=== PATIENT | male | born 1960 | race Caucasian/White ===

== ENCOUNTER → 2016-09-01 | Outpatient (CLI) | payer OTHER | END | disposition home or self-care (01) | LOC: RADMRIMAIN 21:03 | PROVIDERS: ATTEND Orthopaedic Surgery | DX: Z53.9 Procedure and treatment not carried out, unspecified reason (principal) ==

== ENCOUNTER 2023-01-22 13:35 | Inpatient (IN) | payer OTHER ==
[2023-01-22] MEDS ORDERED: IPRATROPIUM-ALBUTEROL 3 ML NEB INHALATION STA (14:11)
--- NOTE | 2023-01-22 14:12 | ED ---
SOB HPI - General Chief Complaint: Shortness of Breath Stated Complaint: Abn EKG, sent by pcp Time Seen by Provider: 01/22/23 13:35 Source: patient Mode of arrival: ambulatory Limitations: no limitations - History of Present Illness Initial Comments: 62-year-old male with no reported past medical history who presents to the emergency department from urgent care. He states he went in there on Wednesday complaining of a cough and shortness of breath. He was diagnosed with pneumonia and started on Augmentin, prednisone and an inhaler. Denies any fevers. No sick contacts with similar symptoms however has been traveling a lot. Admits to green sputum production and has had recurrent pneumonia in the past. He denies history of COPD or asthma. Patient has not felt any better on the medications and went back into the urgent care today. They did an EKG, saw a left bundle branch block. They told his he was having a heart attack and drive him immediately to the hospital. Patient denies any chest pain today. Reports that he did have a coughing fit yesterday with some chest pressure. He denies any history of cardiac disease. No history of DVT or PE. No other alleviating, precipitating or modifying factors - Related Data Home Medications Medication Instructions Recorded Confirmed Albuterol Sulfate [Albuterol 2 puff PO RT-Q4H PRN 01/22/23 01/22/23 Sulfate Hfa] Amoxic-Pot Clav 875-125Mg 1 tab PO Q12HR 01/22/23 01/22/23 [Augmentin 875-125] Magnesium Oxide [Magnesium] 500 mg PO DAILY 01/22/23 01/22/23 Phenylephrine/Dm/Acetaminop/GG 30 ml PO Q4H PRN 01/22/23 01/22/23 [Vicks Dayquil Severe Cold-Flu] clonazePAM 0.5 mg PO HS PRN 01/22/23 01/22/23 Allergies Allergy/AdvReac Type Severity Reaction Status Date / Time No Known Allergies Allergy Verified 01/22/23 15:27 Review of Systems ROS Statement: Those systems with pertinent positive or pertinent negative responses have been documented in the HPI. ROS Other: All systems not noted in ROS Statement are negative. Past Medical History Past Medical History: No Reported History History of Any Multi-Drug Resistant Organisms: None Reported Past Surgical History: No Surgical Hx Reported Past Psychological History: No Psychological Hx Reported Smoking Status: Never smoker Past Alcohol Use History: None Reported Past Drug Use History: None Reported General Exam Limitations: no limitations General appearance: alert, in no apparent distress Head exam: Present: atraumatic, normocephalic, normal inspection Eye exam: Present: normal appearance ENT exam: Present: normal exam, mucous membranes moist Respiratory exam: Present: wheezes. Absent: respiratory distress, accessory muscle use Cardiovascular Exam: Present: tachycardia, irregular rhythm GI/Abdominal exam: Present: soft, normal bowel sounds. Absent: distended, tenderness, guarding, rebound, rigid Extremities exam: Present: normal inspection, full ROM, normal capillary refill. Absent: tenderness, pedal edema, joint swelling, calf tenderness Neurological exam: Present: alert, oriented X3, CN II-XII intact Psychiatric exam: Present: normal affect, normal mood Skin exam: Present: warm, dry, intact, normal color. Absent: rash Course Vital Signs 01/22/23 01/22/23 01/22/23 13:37 13:44 14:39 Temperature 98.4 F Pulse Rate 106 H 101 H 92 Pulse Rate [ 105 H Vp Product ] Respiratory 22 18 18 Rate Blood Pressure 159/95 160/116 160/116 O2 Sat by Pulse 96 97 95 Oximetry 01/22/23 01/22/23 01/22/23 15:00 15:09 16:52 Temperature Pulse Rate 98 91 100 Pulse Rate [ Vp Product ] Respiratory 18 Rate Blood Pressure 148/119 O2 Sat by Pulse 95 Oximetry 01/22/23 17:13 Temperature Pulse Rate 106 H Pulse Rate [ Vp Product ] Respiratory 18 Rate Blood Pressure 171/106 O2 Sat by Pulse 95 Oximetry - Reevaluation(s) Reevaluation #1: Patient would like time to think about cath. Refusing lasix and heparin. Googling credentials for Dr. Lynch. Speaking with family over the phone 01/22/23 17:05 Reevaluation #2: 01/22/23 17:17 patient agreeable to cath at this time Medical Decision Making - Medical Decision Making Was pt. sent in by a medical professional or institution (, PA, LIGHTHOUSE KEEPER, urgent care, hospital, or shelter...) When possible be specific @ -Patient sent in from urgent care Did you speak to anyone other than the patient for history (EMS, parent, family, police, friend...)? What history was obtained from this source @ - provides most history Did you review nursing and triage notes (agree or disagree)? Why? @ -I reviewed and agree with nursing and triage notes Were old charts reviewed (outside hosp., previous admission, EMS record, old EKG, old radiological studies, urgent care reports/EKG's, shelter records)? Report findings @ -No old charts were reviewed Differential Diagnosis (chest pain, altered mental status, abdominal pain women, abdominal pain men, vaginal bleeding, weakness, fever, dyspnea, syncope, headache, dizziness, GI bleed, back pain, seizure, CVA, palpatations, mental health, musculoskeletal)? @ -Differential Dyspnea: Coronary syndrome, arrhythmia, tamponade, asthma, COPD, pulmonary embolism, pneumonia, pneumothorax, pulmonary effusion, anaphylaxis, diabetic ketoacidosis, flailed chest, pulmonary contusion, diaphragmatic rupture, anemia, neuromuscular, this is not meant to be an all-inclusive list. EKG interpreted by me (3pts min.). @ -Yes and demonstrates an irregular rhythm with a rate of 105. ME interval 199. QRS 165. QTC of 451. Left bundle-branch block. negative for sgarbossa criteria X-rays interpreted by me (1pt min.). @ -Yes and demonstrates primary vascular congestion with consolidation of the right upper lobe which may be pneumonia CT interpreted by me (1pt min.). @ -None done U/S interpreted by me (1pt. min.). @ -None done What testing was considered but not performed or refused? (CT, X-rays, U/S, labs)? Why? @ -CT was considered however the patient was taken to [facility] What meds were considered but not given or refused? Why? @ -None Did you discuss the management of the patient with other professionals (professionals i.e. Dr., PA, LIGHTHOUSE KEEPER, lab, RT, psych nurse, social group worker, gambling dealer, teacher, air control/anti air warfare officer, case packer and sealer)? Give summary @ -I spoke with Dr. Sparks, Dr. Dover and Dr. Lynch Was smoking cessation discussed for >3mins.? @ -No Was critical care preformed (if so, how long)? @ -yes, 40 minutes for coordination of care with hospitalist and c ardiologist's. [facility] activated Were there social determinants of health that impacted care today? How? (Homelessness, low income, unemployed, alcoholism, drug addiction, transpor tation, low edu. Level, literacy, decrease access to med. care, alf, rehab)? @ -No Was there de-escalation of care discussed even if they declined (Discuss DNR or withdrawal of care, Hospice)? DNR status @ -No What co-morbidities impacted this encounter? (DM, HTN, Smoking, COPD, CAD, Cancer, CVA, ARF, Chemo, Hep., AIDS, mental health diagnosis, sleep apnea, morbid obesity)? @ -None Was patient admitted / discharged? Hospital course, mention meds given and route, prescriptions, significant lab abnormalities, going to OR and other pertinent info. @ -Upon arrival patient was placed into trauma 2. He is hooked to continuous pulse ox and cardiac monitoring. 12-lead EKG was completed which demonstrated a left bundle branch block. There is no old to compare to and therefore this is assumed to be new. It does not meet Sgarbossa criteria and patient does not have any active symptoms of chest pain. IV was established and laboratory studies are conducted. Chest x-rays performed. Patient does have an elevated troponin with a chest x-ray that demonstrates heart failure. I did give the patient an aspirin and start him on a heparin drip with a heparin bolus. He is also given Lasix for his pulmonary vascular congestion. I did obtain a blood culture and a pro calcitonin the cause of his right upper lobe consolidation. I will administer one dose of antibiotics. I did order a urgent echo which is completed and appears that the patient has significantly reduced EF, 20% I did call and speak with Dr. Sparks who agreed to admit the patient. I spoke with Dr. Lynch. He is agreeable to cathing the patient now as he does have new left bundle-branch block with signs of heart failure. Patient originally was agreeable to heart cath and therefore the team is paged in. The patient then begins to get nervous and wants to speak to family members before agreeing to heart catheterization. He does speak with his . I did explain the benefit of having a heart catheterization done now in order to determine if there is a possible blockage. Patient understood the benefits of the procedure as well as the risks. He then does agree to heart catheterization however there is approximately a 30 minute delay because of this. Consent was signed. Patient was taken to [facility] in stable condition Undiagnosed new problem with uncertain prognosis? @ -yes Drug Therapy requiring intensive monitoring for toxicity (Heparin, Nitro, Insulin, Cardizem)? @ -heparin Were any procedures done? @ -No Diagnosis/symptom? @ -Acute cough, acute dyspnea, new onset heart failure, NSTEMI, possible CAP Acute, or Chronic, or Acute on Chronic? @ -acute Uncomplicated (without systemic symptoms) or Complicated (systemic symptoms)? @ -complicated Side effects of treatment? @ -No Exacerbation, Progression, or Severe Exacerbation? @ -No Poses a threat to life or bodily function? How? (Chest pain, USA, DC, pneumonia, PE, COPD, DKA, ARF, appy, cholecystitis, CVA, Diverticulitis, Homicidal, Suicidal, threat to staff... and all critical care pts) @ -yes patient has significantly reduced heart function which is new onset - Lab Data Result diagrams: 01/22/23 14:22 01/22/23 14:22 Lab Results 01/22/23 01/22/23 01/22/23 Range/Units 14:22 14:22 14:22 WBC 8.9 (3.8-10.6) k/uL RBC 5.14 (4.30-5.90) m/uL Hgb 16.8 (13.0-17.5) gm/dL Hct 49.1 (39.0-53.0) % MCV 95.5 (80.0-100.0) fL MCH 32.6 (25.0-35.0) pg MCHC 34.2 (31.0-37.0) g/dL RDW 12.9 (11.5-15.5) % Plt Count 196 (150-450) k/uL MPV 8.8 Neutrophils % 64 % Lymphocytes % 25 % Monocytes % 9 % Eosinophils % 1 % Basophils % 0 % Neutrophils # 5.7 (1.3-7.7) k/uL Lymphocytes # 2.2 (1.0-4.8) k/uL Monocytes # 0.8 (0-1.0) k/uL Eosinophils # 0.1 (0-0.7) k/uL Basophils # 0.0 (0-0.2) k/uL PT 10.9 (9.0-12.0) sec INR 1.0 (<1.2) APTT 23.2 (22.0-30.0) sec D-Dimer 0.36 (<0.60) mg/L FEU Sodium 138 (137-145) mmol/L Potassium 4.4 (3.5-5.1) mmol/L Chloride 101 (98-107) mmol/L Carbon Dioxide 26 (22-30) mmol/L Anion Gap 11 mmol/L BUN 25 H (9-20) mg/dL Creatinine 1.25 (0.66-1.25) mg/dL Est GFR (CKD-EPI)AfAm 71 (>60 ml/min/1.73 sqM) Est GFR (CKD-EPI)NonAf 61 (>60 ml/min/1.73 sqM) Glucose 136 H (74-99) mg/dL Plasma Lactic Acid Kvng (0.7-2.0) mmol/L Calcium 9.2 (8.4-10.2) mg/dL Total Bilirubin 0.9 (0.2-1.3) mg/dL AST 40 (17-59) U/L ALT 54 H (4-49) U/L Alkaline Phosphatase 53 (38-126) U/L Troponin I (0.000-0.034) ng/mL NT-Pro-B Natriuret Pep 3860 pg/mL Total Protein 7.4 (6.3-8.2) g/dL Albumin 4.3 (3.5-5.0) g/dL Influenza Type A (PCR) (Not Detectd) Influenza Type B (PCR) (Not Detectd) RSV (PCR) (Not Detectd) SARS-CoV-2 (PCR) (Not Detectd) 01/22/23 01/22/23 01/22/23 Range/Units 14:22 14:22 14:22 WBC (3.8-10.6) k/uL RBC (4.30-5.90) m/uL Hgb (13.0-17.5) gm/dL Hct (39.0-53.0) % MCV (80.0-100.0) fL MCH (25.0-35.0) pg MCHC (31.0-37.0) g/dL RDW (11.5-15.5) % Plt Count (150-450) k/uL MPV Neutrophils % % Lymphocytes % % Monocytes % % Eosinophils % % Basophils % % Neutrophils # (1.3-7.7) k/uL Lymphocytes # (1.0-4.8) k/uL Monocytes # (0-1.0) k/uL Eosinophils # (0-0.7) k/uL Basophils # (0-0.2) k/uL PT (9.0-12.0) sec INR (<1.2) APTT (22.0-30.0) sec D-Dimer (<0.60) mg/L FEU Sodium (137-145) mmol/L Potassium (3.5-5.1) mmol/L Chloride (98-107) mmol/L Carbon Dioxide (22-30) mmol/L Anion Gap mmol/L BUN (9-20) mg/dL Creatinine (0.66-1.25) mg/dL Est GFR (CKD-EPI)AfAm (>60 ml/min/1.73 sqM) Est GFR (CKD-EPI)NonAf (>60 ml/min/1.73 sqM) Glucose (74-99) mg/dL Plasma Lactic Acid Kvng 1.4 (0.7-2.0) mmol/L Calcium (8.4-10.2) mg/dL Total Bilirubin (0.2-1.3) mg/dL AST (17-59) U/L ALT (4-49) U/L Alkaline Phosphatase (38-126) U/L Troponin I 0.294 H* (0.000-0.034) ng/mL NT-Pro-B Natriuret Pep pg/mL Total Protein (6.3-8.2) g/dL Albumin (3.5-5.0) g/dL Influenza Type A (PCR) Not Detected (Not Detectd) Influenza Type B (PCR) Not Detected (Not Detectd) RSV (PCR) Not Detected (Not Detectd) SARS-CoV-2 (PCR) Not Detected (Not Detectd) Disposition Clinical Impression: Elevated brain natriuretic peptide (BNP) level, NSTEMI (non-ST elevated myocardial infarction), New onset left bundle branch block (LBBB), Cough, CAP (community acquired pneumonia) Disposition: ADMITTED IP TO THIS HOSP Condition: Stable Is patient prescribed a controlled substance at d/c from ED?: No Time of Disposition: 16:16 Decision to Admit Reason: Admit from EC Decision Date: 01/22/23 Decision Time: 16:16
[2023-01-22 14:49] LABS: Partial Thromboplastin Time 23.2 sec (22.0-30.0); Prothrombin Time 10.9 sec (9.0-12.0)
--- NOTE | 2023-01-22 14:50 | XR ---
EXAMINATION TYPE: XR chest 2V DATE OF EXAM: 01/22/2023 COMPARISON: None HISTORY: 62 year-old male shortness of breath, difficulty breathing TECHNIQUE: PA and lateral views FINDINGS: Mildly enlarged. Diffuse interstitial opacity. Trace pleural effusions on the lateral view. There is focal opacity at the right upper lobe. IMPRESSION: 1. Mild cardiomegaly and interstitial opacities. Correlate for CHF with mild interstitial pulmonary e seth. Trace pleural effusions. 2. Focal opacity right upper lobe could represent a confluent pulmonary edema versus pneumonia. Follo w-up after treatment to ensure clearance and exclude an underlying mass.
[2023-01-22 14:51] LABS: ALT 54 U/L (4-49); AST 40 U/L (17-59); African American GFR (CKD) 71 (>60 ml/min/1.73 sqM); Albumin 4.3 g/dL (3.5-5.0); Alkaline Phosphatase 53 U/L (38-126); Anion Gap 11 mmol/L; Blood Urea Nitrogen 25 mg/dL (9-20); Calcium 9.2 mg/dL (8.4-10.2); Carbon Dioxide 26 mmol/L (22-30); Chloride 101 mmol/L (98-107); Glucose 136 mg/dL (74-99); Non-African American GFR(CKD) 61 (>60 ml/min/1.73 sqM); Potassium 4.4 mmol/L (3.5-5.1); Sodium 138 mmol/L (137-145); Total Bilirubin 0.9 mg/dL (0.2-1.3); Total Protein 7.4 g/dL (6.3-8.2)
[2023-01-22 14:59] LABS: NT-Pro-B-Type Natriuretic Pept 3860 pg/mL
[2023-01-22 15:22] LABS: Basophils % (A) 0 %; Eosinophils # (A) 0.1 k/uL (0-0.7); Eosinophils % (A) 1 %; HCT 49.1 % (39.0-53.0); HGB 16.8 gm/dL (13.0-17.5); Lymphocytes # (A) 2.2 k/uL (1.0-4.8); Lymphocytes % (A) 25 %; MCH 32.6 pg (25.0-35.0); MCHC 34.2 g/dL (31.0-37.0); MCV 95.5 fL (80.0-100.0); Mean Platelet Volume 8.8; Monocytes # (A) 0.8 k/uL (0-1.0); Monocytes % (A) 9 %; Neutrophils # (A) 5.7 k/uL (1.3-7.7); Neutrophils % (A) 64 %; Platelet Count 196 k/uL (150-450); RBC 5.14 m/uL (4.30-5.90); RDW 12.9 % (11.5-15.5); WBC 8.9 k/uL (3.8-10.6)
[2023-01-22] MEDS ORDERED: HEPARIN SODIUM 1,000 UN/ML (10ML VL) IV ONE (16:13)
[2023-01-22] MEDS ORDERED: HEPARIN SODIUM 1,000 UN/ML (10ML VL) IV PRN (16:13)
[2023-01-22] MEDS ORDERED: HEPARIN SOD,PORK IN 0.45% NACL 25,000 UNIT in 0.45% NACL 1 250ML.BAG IV SCH (16:15)
[2023-01-22] MEDS ORDERED: NALOXONE 0.4 MG/ML 1 ML VIAL IV PRN (16:16)
[2023-01-22] MEDS ORDERED: AZITHROMYCIN 500 MG in SODIUM CHLORIDE 0.9% 250 ML IVPB STA (16:22)
[2023-01-22] MEDS ORDERED: cefTRIAXone IN SWFI 1,000 MG/10 ML SYRINGE IVP STA ×2 (16:22→16:24)
[2023-01-22] MEDS ORDERED: ASPIRIN 81 MG PO STA (16:28)
[2023-01-22] MEDS ORDERED: FUROSEMIDE 10 MG/ML 4 ML VIAL IV STA (16:29)
[2023-01-22] MEDS ORDERED: FUROSEMIDE 10 MG/ML 2 ML VIAL IV ONE (16:45)
[2023-01-22] MEDS ORDERED: VERAPAMIL 2.5 MG/ML 2 ML AMP ONE (17:13)
[2023-01-22] MEDS ORDERED: HEPARIN SODIUM 1,000 UN/ML (10ML VL) ONE (17:22)
--- NOTE | 2023-01-22 17:38 | P.HPIM ---
History of Present Illness H&P Date: 01/22/23 Patient is a 62-year-old male with no significant past medical history presenting with shortness of breath. He claims that 4 weeks ago he had a cold and was adequately treated by his PCP. 1 week ago he came back from a business trip, notice that his cold was back. He again went to an urgent care, and was prescribed medications which helped initially but his respiratory symptoms did not go away. He does have cough, occasional productive sputum. He also has orthopnea, but denies any dyspnea on exertion or any chest discomfort. He denies having these symptoms in the past. Today he went to his PCP and had an EKG that showed new left bundle branch block and was referred directly to the ER. He denies any fevers, or chills, abdominal pain, nausea, vomiting, urinary or bowel complaints. He denies any smoking history, alcohol use or illicit drug use. He denies any significant immediate family history for cardiovascular disease. In the ED, temperature was 98.4, pulse 106, respiratory rate 22, blood pressure 159/95, saturating at 96% on room air. WBC 8.9, hemoglobin 16.8, potassium 4.4, BUN 25, creatinine 1.25, Trop 0.294, proBNP 3800. Respiratory viral panel nega tive. EKG independently interpreted shows sinus tachycardia and newly found LBBB. CXR independently interpreted, shows bilateral interstitial prominence. Patient was also found to have EF of 20-25% on bedside echo. Patient being taken to lab[facility] for cardiac catheterization. Pertinent positives and negatives as discussed in HPI, a complete review of systems was performed and all other systems are negative. Patient seen and examined at bedside. Vital signs reviewed General: nontoxic, no distress, appears at stated age Derm: warm, dry Head: atraumatic, normocephalic, symmetric Eyes: EOMI, no lid lag, anicteric sclera, pupils equal round reactive to light ENT: Nose and ears atraumatic Neck: No thyromegaly, supple Mouth: no lip lesion, mucus membranes moist Cardiovascular: S1S2 reg, no murmur, trace edema Lungs: Bilateral rales, no wheeze, no accessory muscle use Abdominal: soft, nontender to palpation, no guarding, no appreciable organomegaly Ext: no gross muscle atrophy, muscle strength muscle strength 5 out of 5 in all 4 extremities, no contractures Neuro: CN II-XII grossly intact Psych: Alert, oriented, appropriate affect, anxious Assessment/Plan: Cardiomyopathy, unknown if ischemic or nonischemic Acute systolic CHF exacerbation Pulmonary edema Sinus tachycardia NSTEMI Possible pneumonia -Pending cardiac cath -Given IV lasix, and ASA in the ED -on heparin gtt -After cath, patient should be started on GDMT for systolic heart failure -A1c, lipid panel, TSH ordered -procalcitonin pending -s/p 1 time dose of IV azithromycin and ceftriaxone, will consider further abx depending on clinical course The patient is admitted with an anticipated greater than 2 midnight stay as inpatient status for evaluation of an acute systolic CHF exacerbation. Surrogate decision-maker: CODE STATUS: Full code DVT prophylaxis: Heparin drip Anticipated discharge date: Pending clinical course Anticipated discharge place: Pending clinical course A total of 55 minutes was spent on the care of this complex patient more than 50% of the time was spent in counseling and care coordination. Past Medical History Past Medical History: No Reported History History of Any Multi-Drug Resistant Organisms: None Reported Past Surgical History: No Surgical Hx Reported Past Psychological History: No Psychological Hx Reported Smoking Status: Never smoker Past Alcohol Use History: None Reported Past Drug Use History: None Reported Medications and Allergies Home Medications Medication Instructions Recorded Confirmed Type Albuterol Sulfate [Albuterol 2 puff PO RT-Q4H PRN 01/22/23 01/22/23 History Sulfate Hfa] Amoxic-Pot Clav 875-125Mg 1 tab PO Q12HR 01/22/23 01/22/23 History [Augmentin 875-125] Magnesium Oxide [Magnesium] 500 mg PO DAILY 01/22/23 01/22/23 History Phenylephrine/Dm/Acetaminop/GG 30 ml PO Q4H PRN 01/22/23 01/22/23 History [Vicks Dayquil Severe Cold-Flu] clonazePAM 0.5 mg PO HS PRN 01/22/23 01/22/23 History Allergies Allergy/AdvReac Type Severity Reaction Status Date / Time No Known Allergies Allergy Verified 01/22/23 15:27 Physical Exam Vitals: Vital Signs Temp Pulse Pulse Resp BP Pulse Ox 01/22/23 17:13 106 H 18 171/106 95 01/22/23 16:52 100 18 148/119 95 01/22/23 15:09 91 01/22/23 15:00 98 01/22/23 14:39 92 18 160/116 95 01/22/23 13:44 101 H 105 H 18 160/116 97 01/22/23 13:37 98.4 F 106 H 22 159/95 96 Intake and Output 01/22/23 01/22/23 01/22/23 06:59 14:59 22:59 Intake Total 480 Balance 480 Intake: Oral 480 Other: Weight 99.79 kg Results CBC & Chem 7: 01/22/23 14:22 01/22/23 14:22 Labs: Abnormal Lab Results - Last 24 Hours (Table) 01/22/23 01/22/23 Range/Units 14:22 14:22 BUN 25 H (9-20) mg/dL Glucose 136 H (74-99) mg/dL ALT 54 H (4-49) U/L Troponin I 0.294 H* (0.000-0.034) ng/mL
[2023-01-22] MEDS ORDERED: SODIUM CHLORIDE 0.9% 1,000 ML IV ONE (17:49)
[2023-01-22] MEDS ORDERED: MIDAZOLAM 2 MG/2 ML VIAL IVP ONE ×2 (17:57→18:13)
[2023-01-22] MEDS ORDERED: fentaNYL (PF) 50 MCG/1 ML VIAL IVP ONE (17:58)
[2023-01-22] MEDS ORDERED: LIDOCAINE 1% INJ 10MG/ML (5 ML VIAL-PF) SQ ONE (18:03)
[2023-01-22] MEDS ORDERED: VERAPAMIL SYRINGE (5 MG/10 ML) INTRAARTER ONE (18:05)
[2023-01-22] MEDS ORDERED: fentaNYL (PF) 50 MCG/ML 2 ML AMP ONE (18:10)
[2023-01-22] MEDS ORDERED: fentaNYL (PF) 50 MCG/ML 2 ML AMP IVP ONE (18:17)
[2023-01-22] MEDS ORDERED: FUROSEMIDE 10 MG/ML 4 ML VIAL ONE (18:18)
[2023-01-22] MEDS ORDERED: CLOPIDOGREL 75 MG TAB ONE (18:18)
[2023-01-22] MEDS ORDERED: HEPARIN SODIUM 1,000 UN/ML (10ML VL) IVP ONE (18:29)
[2023-01-22] MEDS ORDERED: CLOPIDOGREL 75 MG TAB PO ONE (18:29)
[2023-01-22] MEDS ORDERED: IOPAMIDOL-370 100ML BTL INJ ONE ×2 (18:30→18:51)
[2023-01-22] MEDS ORDERED: FUROSEMIDE 10 MG/ML 4 ML VIAL IVP ONE (18:30)
[2023-01-22] MEDS ORDERED: ATROPINE SULFATE 0.1 MG/ML 10ML SYRINGE IV PRN (18:40)
[2023-01-22] MEDS ORDERED: NITROGLYCERIN SL TABS 0.4 MG TAB SUBLINGUAL PRN (18:40)
[2023-01-22] MEDS ORDERED: RX INFO: IV CONTRAST WAS GIVEN 1 EACH MISC MISCELLANE PRN (18:40)
[2023-01-22] MEDS ORDERED: ZOLPIDEM 5 MG TAB PO PRN (18:40)
[2023-01-22] MEDS ORDERED: MAG HYDROX/AL HYDROX/SIMETH 30 ML CUP PO PRN (18:40)
[2023-01-22] MEDS ORDERED: SODIUM CHLORIDE 0.9% 1,000 ML in EMPTY BAG 1 BAG IV SCH (18:45)
--- NOTE | 2023-01-22 18:50 | P.PCN ---
Date of Procedure: 01/22/23 Operative Findings: CARDIAC CATHETERIZATION AND PERCUTANEOUS CORONARY INTERVENTION PERFORMING PHYSICIAN: Jesus Lynch MD, VI PROCEDURE PERFORMED: 1. Selective right and left coronary angiogram 2. Left heart catheterization 3. Successful stenting of mid LAD using 3.5 x 18 mm Xience GORDO with an excellent angiographic results 4. Adjunctive use of intravascular ultrasound 5. Ultrasound-guided access of the right radial artery INDICATION: Acute coronary syndrome. This is a 62-year-old gentleman with no significant past medical history who was experiencing symptoms of shortness of breath and cough for the last few weeks. He was seen at urgent care and he was evaluated there where he underwent an EKG that showed sinus mechanism with a new LBBB. In the light of that he was referred to the emergency department. Cardiac enzymes were checked and came in to be abnormal. In the light of his symptoms and abnormal EKG and abnormal cardiac enzymes a heart catheterization was advised. COMPLICATION: None APPROACH: Right radial artery LEVEL OF SEDATION: Moderate with the sedation time off 33 minutes PROCEDURE DESCRIPTION: After obtaining an informed consent the patient was brought to the cardiac labor contract analyst. The right radial artery was cannulated using micro-puncture technique under ultrasound guidance and the micropuncture wire passed easily then I placed a 6-Occitan sheath at the right radial artery. I gave him 2 mg of verapamil intra-arterial and no heparin was given at the beginning of the procedure because the heparin was stopped just before the patient arrived to the cardiac labor contract analyst. Before we started intervention I did an ACT and heparin was initiated with continuous ACT monitoring. Subsequently I did selective right and left coronary angiogram with JR4 and JL 3.5 catheters. Left heart catheterization was performed using the JR4 catheter which across aortic valve then I did pulled back across the valve. Then I intervened on the LAD. The procedure was completed was no complication SELECTIVE CORONARY ANGIOGRAM: The right coronary artery: Large caliber vessel. The RCA is chronically occluded by the bifurcation of the acute marginal branch. The RCA is unknown to be dominant or nondominant. Left main: Is angiographically normal. Bifurcates into an LCx and LAD The left circumflex: Large caliber vessel and a dominant vessel. The RCA has mild disease only. Gives rises into an OM 1 which is a medium caliber vessel appears to be angiographically normal and works as a ramus intermedius and OM 2 which is also a medium caliber vessel appears to be angiographically normal and OM 3 which is a small caliber vessel and OM for which is a large caliber vessel has intermediate disease by the ostium. The circumflex distally has intermediate lesion appears to be in the range of 30-40%. Then the circumflex bifurcates into PDA and PLV branches both appeared to be angiographically normal. The left anterior descending artery: Large caliber vessel. The proximal LAD has mild disease only. The mid LAD has a plaque rupture and thrombus formation with a lesion appeared to be in the range of 70-80%. The LAD gives rises into first and second diagonals they are small to medium caliber vessel with ostial disease appears to be in the range of 50-60%. HEMODYNAMICS: The LVEDP was 32 mmHg was no significant gradient across aortic valve. PCI OF THE LAD: Anticoagulation was initiated using heparin with continuous ACT monitoring. Subsequently I did engage the left main using JL 3.5 guiding catheter. I did wire the LAD using a run-through wire. I did intravascular ultrasound of the LAD which showed a diameter around 3.5 mm with noncalcified lesion but appears to be thrombotic lesion. I decided to go ahead and do direct stenting on his beta I deployed 3.5 x 18 mm stent where the stent was positioned under fluoroscopy guidance and deployed under 12 daniel for 20 seconds with final angiogram showing excellent angiographic results was CHAPARRO-3 flow. The procedure was completed was no complication. CONCLUSION: 1. Severe thrombotic lesion involving the mid left anterior descending artery. I did perform successful stenting of the LAD as described above 2. Intermediate disease involving the left circumflex coronary. The LCx is a dominant system 3. 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 4. Severely elevated left-sided filling pressure. The LVEDP is 32 mmHg 5. The LV appears to be severely dilated under fluoroscopy POSTPROCEDURE MANAGEMENT: 1. Dual antiplatelet therapy using aspirin and Plavix for 6 month 2. Aggressive cholesterol control 3. Follow-up with the patient
--- NOTE | 2023-01-22 19:01 | P.CRDCN ---
History of Present Illness Consult date: 01/22/23 Chief complaint: Shortness of breath History of present illness: This is a 62-year-old gentleman with no significant past medical history as ken lazo presented to the emergency department complaining of shortness of breath. The patient has been struggling was cough associated with shortness of breath for the last 4 weeks. Initially he was seen by his primary care physician about 4 weeks ago and he was treated with no significant improvement. He subsequently presented to the urgent care complaining of shortness of breath as well. Subsequently an EKG was performed at the urgent care and revealed sinus mechanism with LBBB. That was a new to the patient. No prior EKG showing left bundle branch block morphology. Further testing performed including troponin that came in to be abnormal. The chest x-ray showed findings consiste nt was cardiomegaly and congestive heart failure. The patient reported no symptoms of any chest pain or chest discomfort and no dizziness or lightheadedness and no feeling of heart racing or fluttering and no presyncope or syncope. No significant prior medical history. No CAD or CHF or cardiac ar rhythmia. He is not on any medication at home. Giving the above finding including the shortness of breath and the abnormal EKG and the abnormal troponin I decided to pursue with a heart catheterization emergently. The patient underwent an emergent heart catheterization and that revealed chronic total occlusion of the right coronary artery with critical disease involving the mid left anterior descending artery with thrombotic lesion related to plaque rupture. I did perform successful stenting of the mid left anterior descending artery with a good angiographic results and CHAPARRO 3 flow. Please note that the LVEDP came in to be severely elevated at 32 mmHg. The patient will be admitted to the intensive care unit. He would be on dual antiplatelet therapy along with high intensity statin along with anti-ischemic medication as well as Lasix. We will monitor the kidney function and electrolytes. Subsequently Aldactone will be added to the current medical regimen. The patient tolerated the procedure very well. The procedure was performed from the right radial approach The examination is remarkable for stable vital signs beside sinus tachycardia Cardiovascular examination reveals regular rate and rhythm Chest examination revealed bilateral expiratory wheezing No edema was noted in the lower extremities Assessment Acute coronary syndrome Status post PCI of the LAD Heart failure of unknown etiology at this point Severe CAD as described above Tachycardia Overweight Plan Dual antiplatelet therapy Beta kathy and HOLLIE inhibitor Lasix IV Monitor the kidney function and electrolytes Consider maximize medical treatment for cardiomyopathy Follow-up with the patient Past Medical History Past Medical History: No Reported History History of Any Multi-Drug Resistant Organisms: None Reported Past Surgical History: No Surgical Hx Reported Past Psychological History: No Psychological Hx Reported Smoking Status: Never smoker Past Alcohol Use History: None Reported Past Drug Use History: None Reported Medications and Allergies Home Medications Medication Instructions Recorded Confirmed Type Albuterol Sulfate [Albuterol 2 puff PO RT-Q4H PRN 01/22/23 01/22/23 History Sulfate Hfa] Amoxic-Pot Clav 875-125Mg 1 tab PO Q12HR 01/22/23 01/22/23 History [Augmentin 875-125] Magnesium Oxide [Magnesium] 500 mg PO DAILY 01/22/23 01/22/23 History Phenylephrine/Dm/Acetaminop/GG 30 ml PO Q4H PRN 01/22/23 01/22/23 History [Vicks Dayquil Severe Cold-Flu] clonazePAM 0.5 mg PO HS PRN 01/22/23 01/22/23 History Allergies Allergy/AdvReac Type Severity Reaction Status Date / Time No Known Allergies Allergy Verified 01/22/23 15:27 Physical Exam Vitals: Vital Signs Temp Pulse Pulse Resp BP Pulse Ox 01/22/23 17:35 97.6 F 103 H 18 160/106 98 01/22/23 17:13 106 H 18 171/106 95 01/22/23 16:52 100 18 148/119 95 01/22/23 15:09 91 01/22/23 15:00 98 01/22/23 14:39 92 18 160/116 95 01/22/23 13:44 101 H 105 H 18 160/116 97 01/22/23 13:37 98.4 F 106 H 22 159/95 96 Intake and Output 01/22/23 01/22/23 01/22/23 06:59 14:59 22:59 Intake Total 580 Balance 580 Intake: IV 100 Oral 480 Other: Weight 99.79 kg Results 01/22/23 14:22 01/22/23 14:22 Cardiac Enzymes 01/22/23 01/22/23 01/22/23 Range/Units 14:22 14:22 17:15 AST 40 (17-59) U/L Troponin I 0.294 H* 0.291 H* (0.000-0.034) ng/mL Coagulation 01/22/23 Range/Units 14:22 PT 10.9 (9.0-12.0) sec APTT 23.2 (22.0-30.0) sec CBC 01/22/23 Range/Units 14:22 WBC 8.9 (3.8-10.6) k/uL RBC 5.14 (4.30-5.90) m/uL Hgb 16.8 (13.0-17.5) gm/dL Hct 49.1 (39.0-53.0) % Plt Count 196 (150-450) k/uL Comprehensive Metabolic Panel 01/22/23 Range/Units 14:22 Sodium 138 (137-145) mmol/L Potassium 4.4 (3.5-5.1) mmol/L Chloride 101 (98-107) mmol/L Carbon Dioxide 26 (22-30) mmol/L BUN 25 H (9-20) mg/dL Creatinine 1.25 (0.66-1.25) mg/dL Glucose 136 H (74-99) mg/dL Calcium 9.2 (8.4-10.2) mg/dL AST 40 (17-59) U/L ALT 54 H (4-49) U/L Alkaline Phosphatase 53 (38-126) U/L Total Protein 7.4 (6.3-8.2) g/dL Albumin 4.3 (3.5-5.0) g/dL Current Medications Generic Name Dose Route Start Last Admin Trade Name Freq PRN Reason Stop Dose Admin Al Hydroxide/Mg Hydroxide 30 ml 01/22/23 18:40 Mag Hydrox/Al Hydrox/Simeth 30 Ml Cup PO Q4HR PRN Heartburn Aspirin 81 mg 01/23/23 09:00 Aspirin 81 Mg PO DAILY TOM Atropine Sulfate 0.5 mg 01/22/23 18:40 Atropine Sulfate 0.1 Mg/Ml 10ml Syringe IV ONCE PRN Symptomatic Bradycardia Clopidogrel Bisulfate 75 mg 01/23/23 09:00 Clopidogrel 75 Mg Tab PO DAILY [facility] Protocol Furosemide 40 mg 01/22/23 21:00 Furosemide 10 Mg/Ml 4 Ml Vial IV Q12HR [facility] Heparin Sodium (Porcine) 0 unit 01/22/23 16:13 Heparin Sodium 1,000 Un/Ml (10ml Vl) IV PER PROTOCOL PRN Low PTT Protocol Heparin Sodium/Sodium Chloride 250 mls @ 10 mls/hr 01/22/23 16:15 01/22/23 17:26 25,000 unit/ Sodium Chloride IV 10.021 units/kg/hr .Q24H TOM 10 mls/hr Administration Protocol 10.021 UNITS/KG/HR Sodium Chloride 1,000 ml/ IV 1,000 mls @ 75 mls/hr 01/22/23 18:45 Solution IV 01/22/23 23:46 .[id number] TOM Lisinopril 2.5 mg 01/23/23 09:00 Lisinopril 2.5 Mg Tab PO DAILY TOM Metoprolol Tartrate 25 mg 01/22/23 21:00 Metoprolol Tartrate 25 Mg Tab PO BID TOM Miscellaneous Information 1 each 01/22/23 18:40 Rx Info: Iv Contrast Was Given 1 Each Misc MISCELLANE 01/24/23 18:40 DAILY PRN Per Protocol Naloxone HCl 0.2 mg 01/22/23 16:16 Naloxone 0.4 Mg/Ml 1 Ml Vial IV Q2M PRN Opioid Reversal Nitroglycerin 0.4 mg 01/22/23 18:40 Nitroglycerin Sl Tabs 0.4 Mg Tab SUBLINGUAL Q5M PRN Chest Pain Zolpidem Tartrate 5 mg 01/22/23 18:40 Zolpidem 5 Mg Tab PO HS PRN Insomnia Intake and Output 01/22/23 01/22/23 01/22/23 06:59 14:59 22:59 Intake Total 580 Balance 580 Intake: IV 100 Oral 480 Other: Weight 99.79 kg Patient Weight 01/23/23 06:59 Weight 99.79 kg 01/22/23 14:22 01/22/23 14:22
[2023-01-22 19:02] LABS: Glucose,Whole Blood 138 mg/dL (70-110)
[2023-01-22] MEDS ORDERED: lisinopriL 10 MG TAB PO STA (20:01)
[2023-01-22] MEDS ORDERED: hydrALAZINE HCL 20 MG/ML 1 ML VIAL IVP PRN (20:02)
[2023-01-22] MEDS: FUROSEMIDE 10 MG/ML 4 ML VIAL IV SCH (20:36)
[2023-01-22] MEDS ORDERED: METOPROLOL TARTRATE 25 MG TAB PO SCH (21:00)
[2023-01-23] MEDS ORDERED: HEPARIN SODIUM 1,000 UN/ML (10ML VL) IV PRN (01:25)
[2023-01-23] MEDS ORDERED: DEXTROSE 5% IN WATER 100 ML with AMIODARONE 150 MG IV ONE (01:30)
[2023-01-23] MEDS ORDERED: HEPARIN SOD,PORK IN 0.45% NACL 25,000 UNIT in 0.45% NACL 1 250ML.BAG IV SCH (01:30)
[2023-01-23] MEDS ORDERED: AMIODARONE 360 MG in DEXTROSE 5% IN WATER 200 ML IV ONE ×2 (01:40)
[2023-01-23 01:52] LABS: Basophils % (A) 0 %; Eosinophils # (A) 0.1 k/uL (0-0.7); Eosinophils % (A) 1 %; HCT 45.4 % (39.0-53.0); HGB 14.9 gm/dL (13.0-17.5); Lymphocytes # (A) 1.2 k/uL (1.0-4.8); Lymphocytes % (A) 13 %; MCH 31.8 pg (25.0-35.0); MCHC 32.7 g/dL (31.0-37.0); MCV 97.2 fL (80.0-100.0); Mean Platelet Volume 7.4; Monocytes # (A) 0.9 k/uL (0-1.0); Monocytes % (A) 9 %; Neutrophils % (A) 76 %; Platelet Count 210 k/uL (150-450); RBC 4.67 m/uL (4.30-5.90); RDW 13.1 % (11.5-15.5); WBC 9.3 k/uL (3.8-10.6)
[2023-01-23 02:12] LABS: African American GFR (CKD) 72 (>60 ml/min/1.73 sqM); Anion Gap 11 mmol/L; Blood Urea Nitrogen 22 mg/dL (9-20); Carbon Dioxide 29 mmol/L (22-30); Chloride 99 mmol/L (98-107); Glucose 130 mg/dL (74-99); Potassium 4.4 mmol/L (3.5-5.1); Sodium 139 mmol/L (137-145)
[2023-01-23 02:13] LABS: ALT 47 U/L (4-49); AST 33 U/L (17-59); Albumin 4.1 g/dL (3.5-5.0); Alkaline Phosphatase 55 U/L (38-126); Calcium 8.5 mg/dL (8.4-10.2); Magnesium 2.2 mg/dL (1.6-2.3); Non-African American GFR(CKD) 62 (>60 ml/min/1.73 sqM); Total Bilirubin 0.9 mg/dL (0.2-1.3); Total Protein 6.8 g/dL (6.3-8.2)
[2023-01-23 02:14] LABS: INR 1.1 (<1.2)
[2023-01-23 02:15] LABS: Partial Thromboplastin Time 22.4 sec (22.0-30.0); Prothrombin Time 11.3 sec (9.0-12.0)
--- NOTE | 2023-01-23 07:00 | P.PN ---
Subjective Progress Note Date: 01/23/23 Principal diagnosis: CAD/ PCI This is a 62-year-old gentleman with no significant past medical history as beside obesity presented to the emergency department complaining of shortness of breath. The patient has been struggling was cough associated with shortness of breath for the last 4 weeks. Initially he was seen by his primary care physician about 4 weeks ago and he was treated with no significant improvement. He subsequently presented to the urgent care complaining of shortness of breath as well. Subsequently an EKG was performed at the urgent care and revealed sin us mechanism with LBBB. That was a new to the patient. No prior EKG showing left bundle branch block morphology. Further testing performed including troponin that came in to be abnormal. The chest x-ray showed findings consistent was cardiomegaly and congestive heart failure. The patient reported no symptoms of any chest pain or chest discomfort and no dizziness or lightheadedness and no feeling of heart racing or fluttering and no presyncope or syncope. No significant prior medical history. No CAD or CHF or cardiac arrhythmia. He is not on any medication at home. Giving the above finding including the shortness of breath and the abnormal EKG and the abnormal troponin I decided to pursue with a heart catheterization emergently. The patient underwent an emergent heart catheterization and that revealed chronic total occlusion of the right coronary artery with critical disease involving the mid left anterior descending artery with thrombotic lesion related to plaque rupture. I did perform successful stenting of the mid left anterior descending artery with a good angiographic results and CHAPARRO 3 flow. Please note that the LVEDP came in to be severely elevated at 32 mmHg. The patient will be admitted to the intensive care unit. He would be on dual antiplatelet therapy along with high intensity statin along with anti-ischemic medication as well as Lasix. We will monitor the kidney function and electrolytes. Subsequently Aldactone will be added to the current medical regimen. The patient tolerated the procedure very well. The procedure was performed from the right radial approach The examination is remarkable for stable vital signs beside sinus tachycardia Cardiovascular examination reveals regular rate and rhythm Chest examination revealed bilateral expiratory wheezing No edema was noted in the lower extremities 01/23/2023 The patient was seen and evaluated this morning. He is feeling better. Her shortness of breath has improved. Currently he is not hypoxic. He does have mild bilateral lower extremity edema. He went into atrial atrial fibrillation with RVR yesterday and he was converted to normal sinus mechanism on amiodarone. He was started on heparin IV. Beside that he is on dual antiplatelet therapy and also beta kathy and HOLLIE inhibitor and Lasix IV. Currently he is in normal sinus mechanism. Examination is remarkable for diminished breathing sounds bilaterally and mild bilateral lower extremity is edema Assessment Acute coronary syndrome Status post PCI of the LAD Heart failure of unknown etiology at this point Severe CAD as described above Tachycardia Overweight Paroxysmal atrial fibrillation Plan DC heparin and start the patient on oral anticoagulation Continue dual antiplatelet therapy Continue Lasix IV Continue monitor the kidney function and electrolytes DC amiodarone IV and start the patient on amiodarone orally Obtain an EKG to check the QT interval Possible stop amiodarone if the QT interval is prolonged Follow-up on the echocardiogram Objective - Vital Signs Vital signs: Vital Signs Temp 97.7 F 01/23/23 00:05 Pulse 73 01/23/23 06:00 Resp 19 01/23/23 06:00 BP 129/102 01/23/23 06:00 Pulse Ox 95 01/23/23 06:00 FiO2 Intake & Output 01/22/23 01/22/23 01/23/23 06:59 18:59 06:59 Intake Total 580 1341.65 Output Total 2780 Balance 580 -1438.35 Weight 99.79 kg 100.2 kg Intake: IV 100 Intake, IV Titration 1141.65 Amount Amiodarone 360 mg In 166.65 Dextrose 5% in Water 200 ml @ 1 MG/MIN 33.333 mls/ hr IV .Q6H [facility] Rx#: [id number] Dextrose 5% in Water 100 100 ml @ 618 mls/hr IV .Q10M ONE with Amiodarone 150 mg Rx#:[id number] Heparin Sod,Pork in 0.45% 50 NaCl 25,000 unit In 0.45 % NaCl 1 250ml.bag @ 10. 021 UNITS/KG/HR 10 mls/hr IV .Q24H [facility] Rx#: [id number] Sodium Chloride 0.9% 1, 825 000 ml In Empty Bag 1 bag @ 75 mls/hr IV .[id number] [facility] Rx#:[id number] Oral 480 Tube Feeding 200 Output: Urine 2780 Other: Voiding Method Bedside Commode # Bowel Movements 1 - Labs CBC & Chem 7: 01/23/23 01:29 01/23/23 01:24 Labs: Abnormal Lab Results - Last 24 Hours (Table) 01/22/23 01/22/23 01/22/23 Range/Units 14:22 14:22 17:15 BUN 25 H (9-20) mg/dL Glucose 136 H (74-99) mg/dL POC Glucose (mg/dL) (70-110) mg/dL ALT 54 H (4-49) U/L Troponin I 0.294 H* 0.291 H* (0.000-0.034) ng/mL 01/22/23 01/22/23 01/23/23 Range/Units 19:01 20:31 01:24 BUN 22 H (9-20) mg/dL Glucose 130 H (74-99) mg/dL POC Glucose (mg/dL) 138 H (70-110) mg/dL ALT (4-49) U/L Troponin I 0.282 H* (0.000-0.034) ng/mL
[2023-01-23] MEDS ORDERED: AMIODARONE 450 MG in DEXTROSE 5% IN WATER 250 ML IV SCH ×2 (07:40)
[2023-01-23 07:44] LABS: African American GFR (CKD) 88 (>60 ml/min/1.73 sqM); Anion Gap 10 mmol/L; Blood Urea Nitrogen 21 mg/dL (9-20); Calcium 8.4 mg/dL (8.4-10.2); Carbon Dioxide 28 mmol/L (22-30); Chloride 98 mmol/L (98-107); Glucose 138 mg/dL (74-99); INR 1.1 (<1.2); Non-African American GFR(CKD) 76 (>60 ml/min/1.73 sqM); Partial Thromboplastin Time 25.8 sec (22.0-30.0); Prothrombin Time 11.7 sec (9.0-12.0); Sodium 136 mmol/L (137-145)
[2023-01-23 07:45] LABS: Basophils % (A) 0 %; Eosinophils % (A) 1 %; HGB 15.3 gm/dL (13.0-17.5); Lymphocytes # (A) 1.4 k/uL (1.0-4.8); Lymphocytes % (A) 17 %; MCH 32.5 pg (25.0-35.0); MCHC 33.4 g/dL (31.0-37.0); MCV 97.3 fL (80.0-100.0); Mean Platelet Volume 7.8; Monocytes # (A) 0.6 k/uL (0-1.0); Monocytes % (A) 8 %; Neutrophils # (A) 6.1 k/uL (1.3-7.7); Neutrophils % (A) 74 %; Platelet Count 191 k/uL (150-450); RBC 4.72 m/uL (4.30-5.90); RDW 12.9 % (11.5-15.5); WBC 8.2 k/uL (3.8-10.6)
[2023-01-23] MEDS: ASPIRIN 81 MG PO SCH (08:57)
[2023-01-23] MEDS: CLOPIDOGREL 75 MG TAB PO SCH (08:58)
[2023-01-23] MEDS: APIXABAN 2.5 MG TABLET PO SCH ×2 (08:58→20:06)
[2023-01-23] MEDS: FUROSEMIDE 10 MG/ML 4 ML VIAL IV SCH ×2 (08:58→20:06)
[2023-01-23] MEDS ORDERED: AMIODARONE 200 MG TAB PO SCH (09:00)
[2023-01-23] MEDS ORDERED: METOPROLOL TARTRATE 50 MG TAB PO SCH (09:00)
--- NOTE | 2023-01-23 10:44 | CA ---
Transthoracic Echo Report Name: Ross Peacock Age: 62 Gender: M : 1960 Exam Date: 01/22/2023 16:29 Exam Location: [facility] Ht (in): 71 Wt (lb): 220 Ordering Physician: Jeanette Whitaker DO Attending/Referring Phys: [id number], [facility] Medical Director Celia Quinonez, ADWOA Procedure CPT: Indications: nstemi Cardiac Hx: Technical Quality: Fair Contrast 1: Total Dose (mL): Contrast 2: Total Dose (mL): MEASUREMENTS (Male / Female) Normal Values 2D ECHO LV Diastolic Diameter PLAX 7.2 cm 4.2 - 5.9 / 3.9 - 5.3 cm LV Systolic Diameter PLAX 6.2 cm IVS Diastolic Thickness 1.4 cm 0.6 - 1.0 / 0.6 - 0.9 cm LVPW Diastolic Thickness 1.2 cm 0.6 - 1.0 / 0.6 - 0.9 cm LV Relative Wall Thickness 0.4 RV Internal Dim ED PLAX 3.9 cm LA Systolic Diameter LX 3.9 cm 3.0 - 4.0 / 2.7 - 3.8 cm LV Diastolic Volume MOD 4C 169.0 cm??? LV Systolic Volume MOD 4C 139.3 cm??? LV Ejection Fraction MOD 4C 17.6 % LV Cardiac Index MOD 4C 1249.2 cm???/min???m??? LV Diastolic Length 4C 8.8 cm LV Systolic Length 4C 8.4 cm LV Diastolic Volume MOD 2C 136.3 cm??? LV Systolic Volume MOD 2C 94.9 cm??? LV Ejection Fraction MOD 2C 30.4 % LV Cardiac Index MOD 2C 1741.9 cm???/min???m??? LV Diastolic Length 2C 9.2 cm LV Systolic Length 2C 8.3 cm LA Volume 86.1 cm??? 18 - 58 / 22 - 52 cm??? LA Volume Index 38.1 cm???/m??? 16 - 28 cm???/m??? M-MODE Aortic Root Diameter MM 3.6 cm MV E Point Septal Separation 2.0 cm AV Cusp Separation MM 2.3 cm DOPPLER AV Peak Velocity 116.1 cm/s AV Peak Gradient 5.4 mmHg MV Area PHT 5.0 cm??? MV Deceleration Time 193.9 ms MV E' Velocity 5.3 cm/s TR Peak Velocity 294.7 cm/s TR Peak Gradient 34.7 mmHg Right Ventricular Systolic Press 39.0 mmHg FINDINGS Left Ventricle Left ventricular ejection fraction is estimated at 20-25 %. Mildly increased septal wall thickness. Severely increased left ventricular diastolic diameter. Mild to moderate concentric left ventricular hypertrophy. Severely reduced global left ventricular systolic function. Right Ventricle Moderate right ventricular dilatation. Mild pulmonary hypertension. Right Atrium Normal right atrial size. Left Atrium Moderately increased left atrial volume. Mildly increased left atrial area. Mitral Valve Structurally normal mitral valve. Mitral annular calcification. Mild mitral regurgitation. Aortic Valve Trileaflet aortic valve. No aortic valve stenosis or regurgitation. Tricuspid Valve Structurally normal tricuspid valve. Mild tricuspid regurgitation. Pulmonic Valve Structurally normal pulmonic valve. Mild pulmonic regurgitation. Pericardium No pericardial effusion. Aorta Normal size aortic root and proximal ascending aorta. CONCLUSIONS Severe cardiomyopathy. The ejection fraction is 20-25% Previewed by: Dr. Jesus Lynch MD (Electronically Signed) Final Date: 23 January 2023 10:43
[2023-01-23 11:36] VITALS: BMI 30.8
--- NOTE | 2023-01-23 13:37 | P.PN ---
Subjective Progress Note Date: 01/23/23 Hospital Course: 62-year-old male with no significant past medical history presenting with shortness of breath. In the ED, temperature was 98.4, pulse 106, respiratory rate 22, blood pressure 159/95, saturating at 96% on room air. WBC 8.9, hemoglobin 16.8, potassium 4.4, BUN 25, creatinine 1.25, Trop 0.294, proBNP 3800. Respiratory viral panel negative. EKG independently interpreted shows sinus tachycardia and newly found LBBB. CXR independently interpreted, shows bilateral interstitial prominence. Patient was also found to have EF of 20-25% on bedside echo. [facility] being taken [facility] for cardiac catheterization. He was found to have a chronically occluded RCA, severe thrombotic lesion involving the mid LAD, which was stented, intermediate disease in the left circumflex, LVEDP 32. Patient currently in the medical ICU. Subjective: Patient seen and examined at bedside. Overnight he did go into atrial fibrillation. He currently denies any chest pain, shortness of breath is improving. Denies any other complaints. Pertinent positives and negatives as discussed above, a complete review of systems was performed and all other systems are negative. Vitals Signs Reviewed. General: nontoxic, no distress, appears at stated age Derm: warm, dry Head: atraumatic, normocephalic, symmetric Eyes: EOMI, no lid lag, anicteric sclera, pupils equal round reactive to light ENT: Nose and ears atraumatic Neck: No thyromegaly, supple Mouth: no lip lesion, mucus membranes moist Cardiovascular: S1S2 reg, no murmur, trace edema Lungs: Bilateral rales, no wheeze, no accessory muscle use Abdominal: soft, nontender to palpation, no guarding, no appreciable organomega ly Ext: no gross muscle atrophy, muscle strength muscle strength 5 out of 5 in all 4 extremities, no contractures Neuro: CN II-XII grossly intact Psych: Alert, oriented, appropriate affect Data Reviewed Today: Pertinent Labs: WBC 8.2, hemoglobin 15.3, sodium 136, creatinine 1.05, TSH 2.27, pro calcitonin 0.04 Imaging: No new imaging Assessment and Plan: Patient is critically ill, and the mouth ICU Ischemic cardiomyopathy Severe coronary artery disease status post LAD stent Acute CHF exacerbation, systolic NSTEMI Paroxysmal atrial fibrillation -Cardiology note reviewed, amiodarone, oral anticoagulation, dual antiplatelet therapy, continue IV Lasix -Patient is already started on beta kathy, was given lisinopril yesterday, would consider continuing HOLLIE inhibitor -A1c and lipid panel still pending -Continue to monitor renal function and electrolytes, and magnesium while on IV Lasix. DVT ppx: Eliquis Code status: Full code Anticipated discharge place: Pending clinical course Anticipated discharge time: Pending clinical course Objective - Vital Signs Vital signs: Vital Signs Temp 98.2 F 01/23/23 08:00 Pulse 76 01/23/23 12:30 Resp 19 01/23/23 12:30 BP 107/82 01/23/23 12:00 Pulse Ox 98 01/23/23 11:30 FiO2 Intake & Output 01/22/23 01/23/23 01/23/23 18:59 06:59 18:59 Intake Total 580 1341.65 224.109 Output Total 2780 0 Balance 580 -1438.35 224.109 Weight 99.79 kg 100.2 kg 100.2 kg Intake: IV 100 Intake, IV Titration 1141.65 224.109 Amount Amiodarone 360 mg In 166.65 171.109 Dextrose 5% in Water 200 ml @ 1 MG/MIN 33.333 mls/ hr IV .Q6H [facility] Rx#: [id number] Dextrose 5% in Water 100 100 ml @ 618 mls/hr IV .Q10M ONE with Amiodarone 150 mg Rx#:[id number] Heparin Sod,Pork in 0.45% 50 53 NaCl 25,000 unit In 0.45 % NaCl 1 250ml.bag @ 10. 021 UNITS/KG/HR 10 mls/hr IV .Q24H [facility] Rx#: [id number] Sodium Chloride 0.9% 1, 825 000 ml In Empty Bag 1 bag @ 75 mls/hr IV .[id number] [facility] Rx#:[id number] Oral 480 Tube Feeding 200 Output: Urine 2780 0 Other: Voiding Method Bedside Commode Bedside Commode # Bowel Movements 1 - Labs CBC & Chem 7: 01/23/23 07:16 01/23/23 07:16 Labs: Abnormal Lab Results - Last 24 Hours (Table) 01/22/23 01/22/23 01/22/23 Range/Units 14:22 14:22 17:15 Sodium (137-145) mmol/L BUN 25 H (9-20) mg/dL Glucose 136 H (74-99) mg/dL POC Glucose (mg/dL) (70-110) mg/dL ALT 54 H (4-49) U/L Troponin I 0.294 H* 0.291 H* (0.000-0.034) ng/mL 01/22/23 01/22/23 01/23/23 Range/Units 19:01 20:31 01:24 Sodium (137-145) mmol/L BUN 22 H (9-20) mg/dL Glucose 130 H (74-99) mg/dL POC Glucose (mg/dL) 138 H (70-110) mg/dL ALT (4-49) U/L Troponin I 0.282 H* (0.000-0.034) ng/mL 01/23/23 Range/Units 07:16 Sodium 136 L (137-145) mmol/L BUN 21 H (9-20) mg/dL Glucose 138 H (74-99) mg/dL POC Glucose (mg/dL) (70-110) mg/dL ALT (4-49) U/L Troponin I (0.000-0.034) ng/mL
[2023-01-23 15:10] LABS: Chol/HDL Ratio 3.82 Ratio; LDL Cholesterol,Calculated 87.6 mg/dL (0.0-131.0)
[2023-01-23] MEDS: METOPROLOL TARTRATE 50 MG TAB PO SCH ×2 (16:46→20:07)
[2023-01-23 17:02] LABS: African American GFR (CKD) 68 (>60 ml/min/1.73 sqM); Anion Gap 12 mmol/L; Blood Urea Nitrogen 26 mg/dL (9-20); Calcium 8.6 mg/dL (8.4-10.2); Carbon Dioxide 25 mmol/L (22-30); Chloride 98 mmol/L (98-107); Glucose 117 mg/dL (74-99); Magnesium 2.2 mg/dL (1.6-2.3); Non-African American GFR(CKD) 59 (>60 ml/min/1.73 sqM); Potassium 4.1 mmol/L (3.5-5.1); Sodium 135 mmol/L (137-145)
[2023-01-23] MEDS: ATORVASTATIN 80 MG TAB PO SCH (20:06)
[2023-01-23] MEDS ORDERED: clonazePAM 0.5 MG TAB PO STA (21:10)
[2023-01-24] MEDS: FUROSEMIDE 10 MG/ML 4 ML VIAL IV SCH (07:56)
[2023-01-24] MEDS: CLOPIDOGREL 75 MG TAB PO SCH (07:56)
[2023-01-24] MEDS: APIXABAN 2.5 MG TABLET PO SCH ×2 (07:56→20:14)
[2023-01-24] MEDS: ASPIRIN 81 MG PO SCH (07:56)
[2023-01-24] MEDS: METOPROLOL TARTRATE 50 MG TAB PO SCH ×3 (07:56→20:14)
[2023-01-24 08:07] LABS: Basophils % (A) 0 %; Eosinophils # (A) 0.1 k/uL (0-0.7); Eosinophils % (A) 1 %; HCT 44.7 % (39.0-53.0); Lymphocytes # (A) 1.9 k/uL (1.0-4.8); Lymphocytes % (A) 21 %; MCH 32.2 pg (25.0-35.0); MCHC 33.5 g/dL (31.0-37.0); MCV 96.2 fL (80.0-100.0); Mean Platelet Volume 7.8; Monocytes # (A) 0.7 k/uL (0-1.0); Monocytes % (A) 8 %; Neutrophils # (A) 6.4 k/uL (1.3-7.7); Neutrophils % (A) 69 %; Platelet Count 234 k/uL (150-450); RBC 4.65 m/uL (4.30-5.90); WBC 9.2 k/uL (3.8-10.6)
[2023-01-24 08:16] LABS: INR 1.2 (<1.2); Prothrombin Time 12.2 sec (9.0-12.0)
[2023-01-24 08:23] LABS: African American GFR (CKD) 74 (>60 ml/min/1.73 sqM); Anion Gap 11 mmol/L; Blood Urea Nitrogen 32 mg/dL (9-20); Calcium 8.9 mg/dL (8.4-10.2); Carbon Dioxide 26 mmol/L (22-30); Chloride 95 mmol/L (98-107); Glucose 132 mg/dL (74-99); Magnesium 2.1 mg/dL (1.6-2.3); Non-African American GFR(CKD) 64 (>60 ml/min/1.73 sqM); Potassium 3.8 mmol/L (3.5-5.1); Sodium 132 mmol/L (137-145)
[2023-01-24] MEDS: lisinopriL 5 MG TAB PO SCH (11:46)
[2023-01-24] MEDS: SPIRONOLACTONE 25 MG TAB PO SCH (11:46)
--- NOTE | 2023-01-24 11:58 | P.PN ---
Subjective HISTORY OF PRESENT ILLNESS: This is a 62-year-old gentleman with no significant past medical history as beside obesity presented to the emergency department complaining of shortness of breath. The patient has been struggling was cough associated with shortness of breath for the last 4 weeks. Initially he was seen by his primary care physician about 4 weeks ago and he was treated with no significant improvement. He subsequently presented to the urgent care complaining of shortness of breath as well. Subsequently an EKG was performed at the urgent care and revealed sinus mechanism with LBBB. That was a new to the patient. No prior EKG showing left bundle branch block morphology. Further testing performed including troponin that came in to be abnormal. The chest x-ray showed findings consistent was cardiomegaly and congestive heart failure. The patient reported no symptoms of any chest pain or chest discomfort and no dizziness or lightheadedness and no feeling of heart racing or fluttering and no presyncope or syncope. No significant prior medical history. No CAD or CHF or cardiac arrhythmia. He is not on any medication at home. Giving the above finding including the shortness of breath and the abnormal EKG and the abnormal troponin I decided to pursue with a heart catheterization emergently. The patient underwent an emergent heart catheterization and that revealed chronic total occlusion of the right coronary artery with critical disease involving the mid left anterior descending artery with thrombotic lesion related to plaque rupture. I did perform successful stenting of the mid left anterior descending artery with a good angiographic results and CHAPARRO 3 flow. Please note that the LVEDP came in to be severely elevated at 32 mmHg. The patient will be admitted to the intensive care unit. He would be on dual antiplatelet therapy along with high intensity statin along with anti-ischemic medication as well as Lasix. We will monitor the kidney function and electrolytes. Subsequently Aldactone will be added to the current medical regimen. The patient tolerated the procedure very well. The procedure was performed from the right radial approach The examination is remarkable for stable vital signs beside sinus tachycardia Cardiovascular examination reveals regular rate and rhythm Chest examination revealed bilateral expiratory wheezing No edema was noted in the lower extremities 01/23/2023 The patient was seen and evaluated this morning. He is feeling better. Her s hortness of breath has improved. Currently he is not hypoxic. He does have mild bilateral lower extremity edema. He went into atrial atrial fibrillation with RVR yesterday and he was converted to normal sinus mechanism on amiodarone. He was started on heparin IV. Beside that he is on dual antiplatelet therapy and also beta kathy and HOLLIE inhibitor and Lasix IV. Currently he is in normal sinus mechanism. 01/24/2023 Patient examined this morning. Patient is sitting up in the chair. Patient denies chest pain or pressure. He denies shortness of breath. Echocardiogram obtained reveals ejection fraction 20-25%. He remains on IV Lasix. Vital signs are stable. Telemetry reveals sinus mechanism this morning. PHYSICAL EXAM: VITAL SIGNS: Reviewed. GENERAL: Well-developed in no acute distress. NECK: Supple. No JVD or thyromegaly LUNGS: Respirations even and unlabored. Lungs essentially clear to auscultation bilaterally. HEART: Regular rate and rhythm. S1 and S2 heard. EXTREMITIES: Normal range of motion. No clubbing or cyanosis. Peripheral pulses intact. No lower extremity edema ASSESSMENT: Acute coronary syndrome, status post PCI of LAD Ischemic cardiomyopathy, ejection fraction 20-25% Acute heart failure with reduced ejection fraction Paroxysmal atrial fibrillation Nonsustained ventricular tachycardia PLAN: Continue current cardiac medications Discontinue IV Lasix. Begin oral Lasix 40 mg daily Add lisinopril 5 mg daily Add aldactone 25 mg daily Continue telemetry monitoring Discussed importance of dual antiplatelet therapy along with his other cardiac medications with the patient. The patient states he would like to have a homeopathic approach to his health. He states he will continue taking his cardiac medications until he can find a "supplement" for these medications. Patient was educated on the importance of these medications and he verbalized understanding. Patient may benefit from life vest. However unsure if patient will be agreeable to this. We will further discuss this tomorrow with the patient. Continue to monitor patient for an additional 24 hours Further recommendations pending patient's course Nurse practitioner note has been reviewed by physician. Signing provider agrees with the documented findings, assessment, and plan of care. Objective - Vital Signs Vital signs: Vital Signs Temp 98 F 01/24/23 11:28 Pulse 61 01/24/23 11:28 Resp 16 01/24/23 11:28 BP 90/61 01/24/23 11:28 Pulse Ox 94 L 01/24/23 11:28 FiO2 Intake & Output 01/23/23 01/24/23 01/24/23 18:59 06:59 18:59 Intake Total 694.876 7001 Output Total 200 800 625 Balance 564.109 -800 2265 Weight 100.2 kg 103.8 kg Intake: Intake, IV Titration 224.109 Amount Amiodarone 360 mg In 171.109 Dextrose 5% in Water 200 ml @ 1 MG/MIN 33.333 mls/ hr IV .Q6H [facility] Rx#: [id number] Heparin Sod,Pork in 0.45% 53 NaCl 25,000 unit In 0.45 % NaCl 1 250ml.bag @ 10. 021 UNITS/KG/HR 10 mls/hr IV .Q24H [facility] Rx#: [id number] Oral 540 2890 Output: Urine 200 800 625 Other: Voiding Method Toilet Toilet Toilet Urinal Urinal Urinal # Voids 1 - Labs CBC & Chem 7: 01/24/23 07:55 01/24/23 07:55 Labs: Abnormal Lab Results - Last 24 Hours (Table) 01/23/23 01/23/23 01/24/23 Range/Units 07:16 16:43 07:55 PT (9.0-12.0) sec INR (<1.2) Sodium 135 L 132 L (137-145) mmol/L Chloride 95 L (98-107) mmol/L BUN 26 H 32 H (9-20) mg/dL Creatinine 1.29 H (0.66-1.25) mg/dL Glucose 117 H 132 H (74-99) mg/dL Hemoglobin A1c 6.5 H (<=6.0) % 01/24/23 Range/Units 07:55 PT 12.2 H (9.0-12.0) sec INR 1.2 H (<1.2) Sodium (137-145) mmol/L Chloride (98-107) mmol/L BUN (9-20) mg/dL Creatinine (0.66-1.25) mg/dL Glucose (74-99) mg/dL Hemoglobin A1c (<=6.0) % Microbiology - Last 24 Hours (Table) 01/22/23 17:15 Blood Culture - Preliminary Blood
--- NOTE | 2023-01-24 12:11 | P.PN ---
Subjective Progress Note Date: 01/24/23 Hospital Course: 62-year-old male with no significant past medical history presenting with shor tness of breath. In the ED, temperature was 98.4, pulse 106, respiratory rate 22, blood pressure 159/95, saturating at 96% on room air. WBC 8.9, hemoglobin 16.8, potassium 4.4, BUN 25, creatinine 1.25, Trop 0.294, proBNP 3800. Respiratory viral panel negative. EKG independently interpreted shows sinus tachycardia and newly found LBBB. CXR independently interpreted, shows bilateral interstitial prominence. Patient was also found to have EF of 20-25% on bedside echo. Patient being taken to lab analyst for cardiac catheterization. He was found to have a chronically occluded RCA, severe thrombotic lesion involving the mid LAD, which was stented, intermediate disease in the left circumflex, LVEDP 32. Was on IV Lasix, now on oral Lasix. Subjective: Patient seen and examined at bedside. No acute events overnight. Pertinent positives and negatives as discussed above, a complete review of systems was performed and all other systems are negative. Vitals Signs Reviewed. General: nontoxic, no distress, appears at stated age Derm: warm, dry Head: atraumatic, normocephalic, symmetric Eyes: EOMI, no lid lag, anicteric sclera, pupils equal round reactive to light ENT: Nose and ears atraumatic Neck: No thyromegaly, supple Mouth: no lip lesion, mucus membranes moist Cardiovascular: S1S2 reg, no murmur, trace edema Lungs: CTAB, no wheeze, no accessory muscle use Abdominal: soft, nontender to palpation, no guarding, no appreciable organomegaly Ext: no gross muscle atrophy, muscle strength muscle strength 5 out of 5 in all 4 extremities, no contractures Neuro: CN II-XII grossly intact Psych: Alert, oriented, appropriate affect Data Reviewed Today: Pertinent Labs: WBC 9.2, hemoglobin 15, sodium 132, creatinine 1.2, magnesium 2.1, potassium 3.8 Imaging: No new imaging Assessment and Plan: Ischemic cardiomyopathy Severe coronary artery disease status post LAD stent Acute CHF exacerbation, systolic NSTEMI Paroxysmal atrial fibrillation Newly diagnosed type 2 diabetes, A1c 6.5 -Cardiology note reviewed, continue Eliquis, aspirin, statin, Plavix, lisinopril, oral Lasix, metoprolol, and Aldactone -Patient may benefit from LifeVest -A1c 6.5, started on farxiga DVT ppx: Eliquis Code status: Full code Anticipated discharge place: Pending clinical course Anticipated discharge time: Pending clinical course Objective - Vital Signs Vital signs: Vital Signs Temp 98 F 01/24/23 11:28 Pulse 61 01/24/23 11:28 Resp 16 01/24/23 11:28 BP 90/61 01/24/23 11:28 Pulse Ox 94 L 01/24/23 11:28 FiO2 Intake & Output 01/23/23 01/24/23 01/24/23 18:59 06:59 18:59 Intake Total 404.241 1432 Output Total 200 800 625 Balance 564.109 -800 2265 Weight 100.2 kg 103.8 kg Intake: Intake, IV Titration 224.109 Amount Amiodarone 360 mg In 171.109 Dextrose 5% in Water 200 ml @ 1 MG/MIN 33.333 mls/ hr IV .Q6H [facility] Rx#: [id number] Heparin Sod,Pork in 0.45% 53 NaCl 25,000 unit In 0.45 % NaCl 1 250ml.bag @ 10. 021 UNITS/KG/HR 10 mls/hr IV .Q24H [facility] Rx#: [id number] Oral 540 2890 Output: Urine 200 800 625 Other: Voiding Method Toilet Toilet Toilet Urinal Urinal Urinal # Voids 1 - Labs CBC & Chem 7: 01/24/23 07:55 01/24/23 07:55 Labs: Abnormal Lab Results - Last 24 Hours (Table) 01/23/23 01/23/23 01/24/23 Range/Units 07:16 16:43 07:55 PT (9.0-12.0) sec INR (<1.2) Sodium 135 L 132 L (137-145) mmol/L Chloride 95 L (98-107) mmol/L BUN 26 H 32 H (9-20) mg/dL Creatinine 1.29 H (0.66-1.25) mg/dL Glucose 117 H 132 H (74-99) mg/dL Hemoglobin A1c 6.5 H (<=6.0) % 01/24/23 Range/Units 07:55 PT 12.2 H (9.0-12.0) sec INR 1.2 H (<1.2) Sodium (137-145) mmol/L Chloride (98-107) mmol/L BUN (9-20) mg/dL Creatinine (0.66-1.25) mg/dL Glucose (74-99) mg/dL Hemoglobin A1c (<=6.0) % Microbiology - Last 24 Hours (Table) 01/22/23 17:15 Blood Culture - Preliminary Blood
[2023-01-24] MEDS: DAPAGLIFLOZIN PROPANEDIOL 5 MG TABLET PO SCH (12:46)
[2023-01-24] MEDS: ATORVASTATIN 80 MG TAB PO SCH (20:14)
[2023-01-24] MEDS ORDERED: ALPRAZolam 0.25 MG TAB PO STA (21:00)
[2023-01-25] MEDS: ASPIRIN 81 MG PO SCH (08:18)
[2023-01-25] MEDS: DAPAGLIFLOZIN PROPANEDIOL 5 MG TABLET PO SCH (08:18)
[2023-01-25] MEDS: METOPROLOL TARTRATE 50 MG TAB PO SCH ×2 (08:18→16:25)
[2023-01-25] MEDS: APIXABAN 2.5 MG TABLET PO SCH (08:19)
[2023-01-25] MEDS: CLOPIDOGREL 75 MG TAB PO SCH (08:19)
[2023-01-25] MEDS: lisinopriL 5 MG TAB PO SCH (08:19)
[2023-01-25] MEDS: SPIRONOLACTONE 25 MG TAB PO SCH (08:26)
[2023-01-25] MEDS ORDERED: FUROSEMIDE 40 MG TAB PO SCH (09:00)
--- NOTE | 2023-01-25 11:19 | P.PN ---
Subjective Progress Note Date: 01/25/23 HISTORY OF PRESENT ILLNESS: This is a 62-year-old gentleman with no significant past medical history as beside obesity presented to the emergency department complaining of shortness of breath. The patient has been struggling was cough associated with shortness of breath for the last 4 weeks. Initially he was seen by his primary care physician about 4 weeks ago and he was treated with no significant improvement. He subsequently presented to the urgent care complaining of shortness of breath as well. Subsequently an EKG was performed at the urgent care and revealed sinus mechanism with LBBB. That was a new to the patient. No prior EKG showing left bundle branch block morphology. Further testing performed including troponin that came in to be abnormal. The chest x-ray showed findings cons istent was cardiomegaly and congestive heart failure. The patient reported no symptoms of any chest pain or chest discomfort and no dizziness or lightheadedness and no feeling of heart racing or fluttering and no presyncope or syncope. No significant prior medical history. No CAD or CHF or cardiac arrhythmia. He is not on any medication at home. Giving the above finding including the shortness of breath and the abnormal EKG and the abnormal troponin I decided to pursue with a heart catheterization emergently. The patient underwent an emergent heart catheterization and that revealed chronic total occlusion of the right coronary artery with critical disease involving the mid left anterior descending artery with thrombotic lesion related to plaque rupture. I did perform successful stenting of the mid left anterior descending artery with a good angiographic results and CHAPARRO 3 flow. Please note that the LVEDP came in to be severely elevated at 32 mmHg. The patient will be admitted to the intensive care unit. He would be on dual antiplatelet therapy along with high intensity statin along with anti-ischemic medication as well as Lasix. We will monitor the kidney function and electrolytes. Subsequently Aldactone will be added to the current medical regimen. The patient tolerated the procedure very well. The procedure was performed from the right radial approach The examination is remarkable for stable vital signs beside sinus tachycardia Cardiovascular examination reveals regular rate and rhythm Chest examination revealed bilateral expiratory wheezing No edema was noted in the lower extremities 01/23/2023 The patient was seen and evaluated this morning. He is feeling better. Her shortness of breath has improved. Currently he is not hypoxic. He does have mild bilateral lower extremity edema. He went into atrial atrial fibrillation with RVR yesterday and he was converted to normal sinus mechanism on amiodarone. He was started on heparin IV. Beside that he is on dual antiplatelet therapy and also beta kathy and HOLLIE inhibitor and Lasix IV. Currently he is in normal sinus mechanism. 01/24/2023 Patient examined this morning. Patient is sitting up in the chair. Patient denies chest pain or pressure. He denies shortness of breath. Echocardiogram obtained reveals ejection fraction 20-25%. He remains on IV Lasix. Vital signs are stable. Telemetry reveals sinus mechanism this morning. 01/25 Patient is seen today in follow-up. Yesterday, Lasix was changed to oral and Aldactone was added and also lisinopril. Patient is complaining of cough possibly related to lisinopril and this will be changed to losartan. Patient states that he has been urinating a lot and that his weight is down. Documented 1 kg weight loss from yesterday. Blood pressure 118/81, heart rate is in the 60s, pulse ox 96% on room air PHYSICAL EXAM: VITAL SIGNS: Reviewed. GENERAL: Well-developed in no acute distress. NECK: Supple. No JVD or thyromegaly LUNGS: Respirations even and unlabored. Lungs essentially clear to auscultation bilaterally. HEART: Regular rate and rhythm. S1 and S2 heard. EXTREMITIES: Normal range of motion. No clubbing or cyanosis. Peripheral pulses intact. No lower extremity edema ASSESSMENT: Acute coronary syndrome, status post PCI of LAD Ischemic cardiomyopathy, ejection fraction 20-25% Acute heart failure with reduced ejection fraction Paroxysmal atrial fibrillation Nonsustained ventricular tachycardia PLAN: Continue current cardiac medications Continue oral Lasix 40 mg daily and Aldactone Discontinue lisinopril and start patient on losartan 12.5 mg daily due to cough Discussed importance of dual antiplatelet therapy along with his other cardiac medications with the patient. The patient states he would like to have a homeopathic approach to his health. He states he will continue taking his cardiac medications until he can find a "supplement" for these medications. Patient was educated on the importance of these medications and he verbalized understanding. Life vest will be ordered for nonsustained ventricular tachycardia if patient will be agreeable to this. Patient is cleared for discharge from cardiology once LifeVest as arranged. Patient will have follow-up in the office with Dr. Lynch. Nurse practitioner note has been reviewed by physician. Signing provider agrees with the documented findings, assessment, and plan of care. Objective - Vital Signs Vital signs: Vital Signs Temp 98.4 F 01/25/23 08:00 Pulse 62 01/25/23 08:00 Resp 15 01/25/23 08:00 BP 118/81 01/25/23 08:00 Pulse Ox 96 01/25/23 08:36 FiO2 Intake & Output 01/24/23 01/25/23 01/25/23 18:59 06:59 18:59 Intake Total 1378 340 Output Total 1725 Balance -347 340 Weight 102.8 kg Intake: Oral 1378 340 Output: Urine 1725 Other: Voiding Method Toilet Toilet Toilet Urinal Urinal Urinal - Labs CBC & Chem 7: 01/24/23 07:55 01/24/23 07:55 Labs: Microbiology - Last 24 Hours (Table) 01/22/23 17:15 Blood Culture - Preliminary Blood
[2023-01-25 11:33] VITALS: RESP 17
--- NOTE | 2023-01-25 14:56 | P.DS ---
Providers Date of admission: 01/22/23 16:16 Expected date of discharge: 01/25/23 Attending physician: Lin Conklin DO Consults: 01/22/23 16:16 Consult Physician Urgent Consulting Provider: Sherri Tai Consult Reason/Comments: nstemi, new lbbb, possible new heart failure Do you want consulting provider notified?: Yes 01/22/23 18:40 Consult Physician Routine Consulting Provider: Sherri Tai Consult Reason/Comments: Post Interventional patient Do you want consulting provider notified?: Already Contacted Primary care physician: Clarence [facility]racheal [facility] Course: Discharge Diagnosis: Ischemic cardiomyopathy Severe coronary artery disease status post LAD stent Acute CHF exacerbation, systolic NSTEMI Paroxysmal atrial fibrillation Newly diagnosed type 2 diabetes, A1c 6.5 Hospital Course: 62-year-old male with no significant past medical history presenting with shortness of breath. In the ED, temperature was 98.4, pulse 106, respiratory rate 22, blood pressure 159/95, saturating at 96% on room air. WBC 8.9, hemoglobin 16.8, potassium 4.4, BUN 25, creatinine 1.25, Trop 0.294, proBNP 3800. Respiratory viral panel negative. EKG shows sinus tachycardia and newly found LBBB. CXR shows bilateral interstitial prominence. Patient was also found to have EF of 20-25% on bedside echo. Patient taken for emergent cardiac catheterization.. He was found to have a chronically occluded RCA, severe thrombotic lesion involving the mid LAD, which was stented, intermediate disease in the left circumflex, LVEDP 32. Was on IV Lasix, now on oral Lasix. Patient being discharged on guideline directed medical therapy for systolic heart failure. He is also found to have an A1c of 6.5. Would benefit from SGLT2i, however not covered by insurance. Needs prior Auth. Also being discharged with a LifeVest. Follow-up with cardiology. Patient seen and examined at bedside. Vital signs reviewed and stable. General: nontoxic, no distress, appears at stated age Derm: warm, dry Head: atraumatic, normocephalic, symmetric Eyes: EOMI, no lid lag, anicteric sclera Mouth: no lip lesion, mucus membranes moist Cardiovascular: S1S2 reg, no murmur Lungs: CTA bilateral, no rhonchi, no rales , no accessory muscle use Abdominal: soft, nontender to palpation, no guarding, no appreciable organomegaly Ext: no gross muscle atrophy, no edema, no contractures Neuro: CN II-XI grossly intact, no focal neuro deficits Psych: Alert, oriented, appropriate affect A total of 36 minutes of time were spent preparing this complex discharge summary. Patient was discharged on 01/25/23 at 11:15. Patient Condition at Discharge: Stable Plan - Discharge Summary Discharge Rx Participant: No New Discharge Prescriptions: New Metoprolol Succinate (ER) [Toprol XL] 150 mg PO DAILY #120 tab Spironolactone [Aldactone] 25 mg PO DAILY #60 tab Aspirin 81 mg PO DAILY #60 tab Losartan [Cozaar] 12.5 mg PO DAILY #60 tab Apixaban [Eliquis] 2.5 mg PO BID #60 tab Furosemide [Lasix] 40 mg PO DAILY #60 tab Atorvastatin [Lipitor] 80 mg PO HS #60 tab Clopidogrel [Plavix] 75 mg PO DAILY #60 tab Continue clonazePAM 0.5 mg PO HS PRN PRN Reason: Insomnia Magnesium Oxide [Magnesium] 500 mg PO DAILY Albuterol Sulfate [Albuterol Sulfate Hfa] 2 puff PO RT-Q4H PRN PRN Reason: Shortness Of Breath Discontinued Amoxic-Pot Clav 875-125Mg [Augmentin 875-125] 1 tab PO Q12HR Phenylephrine/Dm/Acetaminop/GG [Vicks Dayquil Severe Cold-Flu] 30 ml PO Q4H PRN PRN Reason: Cold Symptoms Discharge Medication List Albuterol Sulfate [Albuterol Sulfate Hfa] 2 puff PO RT-Q4H PRN 01/22/23 [History] Magnesium Oxide [Magnesium] 500 mg PO DAILY 01/22/23 [History] clonazePAM 0.5 mg PO HS PRN 01/22/23 [History] Apixaban [Eliquis] 2.5 mg PO BID #60 tab 01/25/23 [Rx] Aspirin 81 mg PO DAILY #60 tab 01/25/23 [Rx] Atorvastatin [Lipitor] 80 mg PO HS #60 tab 01/25/23 [Rx] Clopidogrel [Plavix] 75 mg PO DAILY #60 tab 01/25/23 [Rx] Furosemide [Lasix] 40 mg PO DAILY #60 tab 01/25/23 [Rx] Losartan [Cozaar] 12.5 mg PO DAILY #60 tab 01/25/23 [Rx] Metoprolol Succinate (ER) [Toprol XL] 150 mg PO DAILY #120 tab 01/25/23 [Rx] Spironolactone [Aldactone] 25 mg PO DAILY #60 tab 01/25/23 [Rx] Follow up Appointment(s)/Referral(s): Bryan Oropeza MD [Primary Care Provider] - 1-2 days (, January 28 1:40) Jesus Lynch MD [STAFF PHYSICIAN] - 1 Week (February 01 9:45) Patient Instructions/Handouts: Heart Attack (DC), Heart Failure (DC), Heart Healthy Diet (DC), Safe Use of Antiplatelet Medication (DC), After Radial Heart Catheterization (GEN) Activity/Diet/Wound Care/Special Instructions: heart healthy diet activity limitations post cath: do not submerge wrist in water avoid bending/flexing the wrist do not lift more than 5 pounds for a week Discharge Disposition: HOME SELF-CARE
[2023-01-25 16:04] VITALS: BP 123/76; PULSE 63; TEMP 98.4
== END 2023-01-25 18:50 | disposition home or self-care (01) | DRG 321 ==
LOC: EC 13:35 → 3SCARD 16:16 → 2SICU 18:35 → 3SCARD 01-23 15:12
PROVIDERS: ADMIT Internal Medicine; ATTEND Internal Medicine
PROC: B240ZZ3 Ultrasonography of Single Coronary Artery, Intravascular (ICD-10-PCS; 2023-01-22)
PROC: 4A023N7 Measurement of Cardiac Sampling and Pressure, Left Heart, Percutaneous Approach (ICD-10-PCS; principal; 2023-01-22 17:08)
PROC: 027034Z Dilation of Coronary Artery, One Artery with Drug-eluting Intraluminal Device, Percutaneous Approach (ICD-10-PCS; 2023-01-22 17:08)
PROC: B2111ZZ Fluoroscopy of Multiple Coronary Arteries using Low Osmolar Contrast (ICD-10-PCS; 2023-01-22 17:08)
DX: I21.4 Non-ST elevation (NSTEMI) myocardial infarction (principal); I50.23 Acute on chronic systolic (congestive) heart failure; J18.9 Pneumonia, unspecified organism; I47.20 Ventricular tachycardia, unspecified; I11.0 Hypertensive heart disease with heart failure; I48.0 Paroxysmal atrial fibrillation; E11.9 Type 2 diabetes mellitus without complications; I25.82 Chronic total occlusion of coronary artery; I25.5 Ischemic cardiomyopathy; I44.7 Left bundle-branch block, unspecified; I25.10 Atherosclerotic heart disease of native coronary artery without angina pectoris; E66.3 Overweight; Z20.822 Contact with and (suspected) exposure to COVID-19; Z68.31 Body mass index [BMI] 31.0-31.9, adult; Z28.310 Unvaccinated for COVID-19; Z87.01 Personal history of pneumonia (recurrent)
CPT/HCPCS: 36415; 71046; 80048; 80053; 80061; 83036; 83605; 83735; 83880; 84145; 84443; 84484; 85025; 85379; 85610; 85730; 87040; 87636; 92978; 93005; 93306; 93458; 94640; 94760; 96374; 96375; 99291

== ENCOUNTER 2024-03-18 12:13 | Emergency (ER) | payer BC, OTHER ==
[2024-03-18 12:42] VITALS: TEMP 97.7
--- NOTE | 2024-03-18 12:49 | ED ---
URI HPI - General Source: patient, RN notes reviewed Mode of arrival: ambulatory Limitations: no limitations <Yanique Hernandez - Last Filed: 03/18/24 12:46> - General Source: patient, RN notes reviewed, old records reviewed <Hang Warren - Last Filed: 03/18/24 13:52> - General Chief Complaint: Upper Respiratory Infection Stated Complaint: Congestion Time Seen by Provider: 03/18/24 12:40 - History of Present Illness Initial Comments: Quick Note: This is a 63-year-old male who presents to the emergency department for coughing and congestion. States that it started last night. He has been around multiple sick contacts and also traveled on a cruise in the last couple of weeks. States that because he has a pacemaker he has been worried about taking anything [id number], and wanted to be evaluated here first. (Yanique Hernandez) Patient is a 63-year-old male who presents emergency department for URI symptoms. Has been having congestion, irritated throat, mild nonproductive cough for last 24 to 48 hours. Began also having some mild symptoms on Wednesday when he returned from a cruise. Did see to family at [facility] as well. Thinks he may have an upper respiratory infection. Recently had a stent placed and is on many medications. Went to be evaluated to discuss possible medications he can take for his current symptoms. Denies chest pain. Denies abdominal pain, nausea, vomiting, diarrhea. No other acute complaints at this time. No fevers. Presents for further evaluation. Originally seen as a quick note. (Hang Warren) - Related Data Home Medications Medication Instructions Recorded Confirmed Albuterol Sulfate [Albuterol 2 puff PO RT-Q4H PRN 01/22/23 01/22/23 Sulfate Hfa] Magnesium Oxide [Magnesium] 500 mg PO DAILY 01/22/23 01/22/23 clonazePAM 0.5 mg PO HS PRN 01/22/23 01/22/23 Previous Rx's Medication Instructions Recorded Apixaban [Eliquis] 2.5 mg PO BID #60 tab 01/25/23 Aspirin 81 mg PO DAILY #60 tab 01/25/23 Atorvastatin [Lipitor] 80 mg PO HS #60 tab 01/25/23 Clopidogrel [Plavix] 75 mg PO DAILY #60 tab 01/25/23 Furosemide [Lasix] 40 mg PO DAILY #60 tab 01/25/23 Losartan [Cozaar] 12.5 mg PO DAILY #60 tab 01/25/23 Metoprolol Succinate (ER) [Toprol 150 mg PO DAILY #120 tab 01/25/23 XL] Spironolactone [Aldactone] 25 mg PO DAILY #60 tab 01/25/23 dexAMETHasone [Decadron] 4 mg PO ONCE #1 tab 03/18/24 Allergies Allergy/AdvReac Type Severity Reaction Status Date / Time codeine Allergy Unknown Verified 03/18/24 12:42 Review of Systems ROS Other: All systems not noted in ROS Statement are negative. <Yanique Hernandez - Last Filed: 03/18/24 12:46> ROS Other: All systems not noted in ROS Statement are negative. <Hang Warren - Last Filed: 03/18/24 13:52> ROS Statement: Those systems with pertinent positive or pertinent negative responses have been documented in the HPI. Review of Systems: CONST: Denies fever EYES: Denies blurry vision ENT: Endorses nasal congestion C/V: Denies Chest pain RESP: Denies shortness of breath GI: Denies abdominal pain : Denies dysuria SKIN: Denies rash. MSK: Denies joint pain. NEURO: Denies headache (Hang Warren) Past Medical History Past Medical History: Coronary Artery Disease (CAD) History of Any Multi-Drug Resistant Organisms: None Reported Past Surgical History: Heart Catheterization With Stent, Pacemaker Past Psychological History: No Psychological Hx Reported Smoking Status: Never smoker Past Alcohol Use History: None Reported Past Drug Use History: None Reported <Yanique Hernandez - Last Filed: 03/18/24 12:46> General Exam Limitations: no limitations <Yanique Hernandez - Last Filed: 03/18/24 12:46> <Hang Warren - Last Filed: 03/18/24 13:52> - General Exam Comments Initial Comments: Visual Physical Exam Vital signs reviewed General: Well-appearing, nontoxic, no acute distress. Head: Normocephalic, atraumatic Eyes: PERRLA, EOMI ENT: Airway patent Chest: Nonlabored breathing Skin: No visual rash, normal skin tone Neuro: Alert and oriented 3 Musculoskeletal: No gross abnormalities (Yanique Hernandez) General: Appears in no acute distress. HEAD: Normal with no signs of head trauma. EYES: EOMI. ENT: Hearing grossly intact. RESPIRATORY: No respiratory distress. Clear breath sounds bilaterally. No hypoxia. C/V: Regular rate and rhythm. ABD: Abdomen is nondistended. EXT: No obvious deformity. SKIN: No rashes or lesions observed on exposed skin. NEURO: Alert and oriented. (Hang Warren) Course Vital Signs 03/18/24 12:39 Temperature 97.7 F Pulse Rate 73 Respiratory 20 Rate Blood Pressure 110/57 O2 Sat by Pulse 97 Oximetry Medical Decision Making <Yanique Hernandez - Last Filed: 03/18/24 12:46> <Hang Warren - Last Filed: 03/18/24 13:52> - Medical Decision Making I performed the QuickNote portion of this chart. Signed Yanique Hernandez PA-C. (Yanique Hernandez) Was pt. sent in by a medical professional or institution ([facility], SYSTEM DEVELOPMENT ENGINEER, urgent care, hospital, or [facility]...) When possible be specific @ -No Did you speak to anyone other than the patient for history (EMS, parent, family, police, friend...)? What history was obtained from this source @ -No Did you review nursing and triage notes (agree or disagree)? Why? @ -I reviewed and agree with nursing and triage notes Were old charts reviewed (outside hosp., previous admission, EMS record, old EKG, old radiological studies, urgent care reports/EKG's, [facility] records)? Report findings @ -No old charts were reviewed Differential Diagnosis (chest pain, altered mental status, abdominal pain women, abdominal pain men, vaginal bleeding, weakness, fever, dyspnea, syncope, headache, dizziness, GI bleed, back pain, seizure, CVA, palpatations, mental health, musculoskeletal)? @ -COVID, flu, RSV, pneumonia. This list is not all inclusive. EKG interpreted by me (3pts min.). @ -None done X-rays interpreted by me (1pt min.). @ -Chest x-ray reveals no obvious acute cardiopulmonary process. CT interpreted by me (1pt min.). @ -None done U/S interpreted by me (1pt. min.). @ -None done What testing was considered but not performed or refused? (CT, X-rays, U/S, labs)? Why? @ -None What meds were considered but not given or refused? Why? @ -None Did you discuss the management of the patient with other professionals (professionals i.e. , PA, SYSTEM DEVELOPMENT ENGINEER, lab, RT, psych nurse, social media marketing specialist, postbed stitcher, teacher, chief accounting officer, pillowcase cleaner)? Give summary @ -No Was smoking cessation discussed for >3mins.? @ -No Was critical care preformed (if so, how long)? @ -No Were there social determinants of health that impacted care today? How? (Homelessness, low income, unemployed, alcoholism, drug addiction, transportation, low edu. Level, literacy, decrease access to med. care, fpc, rehab)? @ -No Was there de-escalation of care discussed even if they declined (Discuss DNR or withdrawal of care, Hospice)? DNR status @ -No What co-morbidities impacted this encounter? (DM, HTN, Smoking, COPD, CAD, Cancer, CVA, ARF, Chemo, Hep., AIDS, mental health diagnosis, sleep apnea, morbid obesity)? @ -None Was patient admitted / discharged? Hospital course, mention meds given and route, prescriptions, significant lab abnormalities, going to OR and other pertinent info. @ -Based on the patient's presentation and physical exam, presents with URI symptoms. Originally seen as a quick note. I evaluated with patient when he was placed in a room. Workup has been completed. Chest x-ray unremarkable. Viral swabs positive for COVID-19 infection. Vital signs are within acceptable limits. I discussed results with the patient. I did offer antiviral medications but as we are uncertain exactly when the patient symptoms started, he declines at this time. Patient will be given a dose of IM Decadron as well as a one-time tablet to take in 48 hours. Patient was in agreement this plan. Strict return precautions discussed. I will provide the patient with a prescription for 1 tablet of Decadron. I instructed the patient to follow up with their PCP in the next 1-3 days.. I explained that the patient should return to the emergency department if they experience any worsening symptoms. Strict return precautions were discussed with the patient. The patient expressed understanding of these instructions. I answered all questions that the patient had. The patient was discharged home in good condition with their prescriptions and follow up information. Undiagnosed new problem with uncertain prognosis? @ -No Drug Therapy requiring intensive monitoring for toxicity (Heparin, Nitro, Insulin, Cardizem)? @ -No Were any procedures done? @ -No Diagnosis/symptom? @ -COVID-19 infection Acute, or Chronic, or Acute on Chronic? @ -Acute Uncomplicated (without systemic symptoms) or Complicated (systemic symptoms)? @ -Uncomplicated Side effects of treatment? @ -No Exacerbation, Progression, or Severe Exacerbation? @ -No Poses a threat to life or bodily function? How? (Chest pain, [place], [place], pneumonia, PE, COPD, DKA, ARF, appy, cholecystitis, CVA, Diverticulitis, Homicidal, Suicidal, threat to staff... and all critical care pts) @ -Unlikely at this time (Hang Warren) - Lab Data Lab Results 03/18/24 Range/Units 12:44 Influenza Type A (PCR) Not Detected (Not Detectd) Influenza Type B (PCR) Not Detected (Not Detectd) RSV (PCR) Not Detected (Not Detectd) SARS-CoV-2 (PCR) Detected A (Not Detectd) Disposition <Yanique Hernandez - Last Filed: 03/18/24 12:46> Is patient prescribed a controlled substance at d/c from ED?: No Time of Disposition: 13:47 <Hang Warren - Last Filed: 03/18/24 13:52> Clinical Impression: COVID-19 Disposition: HOME SELF-CARE Condition: Good Instructions (If sedation given, give patient instructions): COVID-19 (Coronavirus Disease 2019) (ED) Additional Instructions: You have a COVID-19. Isolate best you can. Wear mask in public if symptomatic. Use [id number] Tylenol for analgesia as well as body aches and fevers. Take dose of Decadron in 48 hours. Return to the emergency department for any worsening symptoms. Follow-up with PCP in the next 1 to 3 days. Prescriptions: dexAMETHasone [Decadron] 4 mg PO ONCE #1 tab Referrals: Bryan Oropeza MD [Primary Care Provider] - 1-2 days
--- NOTE | 2024-03-18 13:12 | XR ---
EXAMINATION TYPE: XR chest 2V DATE OF EXAM: 03/18/2024 12:53 PM COMPARISON: Chest radiographs from 01/22/2023 CLINICAL INDICATION: Male, 63 years old with history of Cough, [place]; [facility] TECHNIQUE: XR chest 2V Frontal and lateral views of the chest. FINDINGS: Lungs/Pleura: There is no evidence of pleural effusion, focal consolidation, or pneumothorax. Pulmonary vascularity: Unremarkable. Heart/mediastinum: Cardiomediastinal silhouette is unremarkable. Three lead cardiac conduction device overlying the left hemithorax with lead tips projecting over the right ventricle, right atrium and c oronary sinus. Musculoskeletal: No acute osseous pathology. IMPRESSION: No acute cardiopulmonary disease/process. [facility], , 03/18/2024 1:10 PM
[2024-03-18] MEDS: DEXAMETHASONE SOD PHOSPHATE 4 MG/ML 1 ML VIAL IM STA (14:15)
[2024-03-18 14:19] VITALS: BP 124/74; PULSE 74; RESP 18
== END 2024-03-18 14:19 | disposition home or self-care (01) ==
LOC: EC 12:13
DX: U07.1 COVID-19 (principal); Z88.5 Allergy status to narcotic agent
CPT/HCPCS: 99283; 96372; 87636; 71046; J1100